=== PATIENT | female | born 1985 | race Two or more races ===

== ENCOUNTER 2016-10-30 02:08 | Outpatient (CLI) | payer BC ==
[2016-10-30 02:35] VITALS: BP 152/87
[2016-10-30 02:57] VITALS: BP 126/80
[2016-10-30 03:29] VITALS: BP 132/75
[2016-10-30] MEDS ORDERED: PRENATAL TABLE1 EAC3 PO (04:08)
[2016-10-30 04:40] VITALS: BP 118/63
[2016-10-30 05:31] VITALS: BP 124/73
[2016-10-30 06:52] VITALS: BP 131/76
== END 2016-10-30 08:38 | disposition home or self-care (01) ==
LOC: LDRP-OP 02:08 → 2WEST 02:09 → LDRP-OP 12-03 10:14
DX: O47.1 False labor at or after 37 completed weeks of gestation (principal); Z3A.39 39 weeks gestation of pregnancy
CPT/HCPCS: 59025; G0378

== ENCOUNTER 2016-11-01 23:31 | Inpatient (IN) | payer BC ==
[~2016-11-01] VITALS: Ht 149.9 cm; Wt 63.6 kg
[~2016-11-01 23:31] MED LIST: PRENATAL TABLE1 EAC3 PO
[2016-11-01 23:51] VITALS: BP 175/109
[2016-11-02] VITALS (36 sets, daily range): BP systolic 102–178; BP diastolic 56–86
[2016-11-02 10:14] LABS: EOSINOPHIL (%) 0.8 % (0-5); EOSINOPHIL COUNT 0.1 K/uL (0-0.3); HEMATOCRIT 37.7 % (36.0-46.0); IMMATURE GRANULOCYTE (%) 0.7 % (0.0-0.7); IMMATURE GRANULOCYTE COUNT 0.1 K/uL; LYMPHOCYTE COUNT 1.2 K/uL (1.0-2.8); MCV 85.5 FL (83-99); MEAN PLAT.VOLUME 9.3 uM^3 (9.5-12.4); MONOCYTE (%) 7.1 % (3-12); MONOCYTE COUNT 0.7 K/uL (0-0.8); NEUTROPHIL (%) 78.9 % (45-76); PLATELET COUNT 239 K/uL (156-360); RBC DIS.WIDTH-CV 13.9 % (11.8-14.6); RBC DIS.WIDTH-SD 43.8 % (39-53); RED BLOOD COUNT 4.41 M/uL (3.80-5.20); WHITE BLOOD COUNT 10.1 K/uL (4.1-10.2)
[2016-11-02] MEDS ORDERED: ENDOCET 5-3251 EACH PO (23:45)
[2016-11-02] MEDS ORDERED: IBUPROFEN800 MG PO (23:45)
[2016-11-03] VITALS (11 sets, daily range): BP systolic 118–149; BP diastolic 65–85
[2016-11-03 05:15] LABS: EOSINOPHIL (%) 0.2 % (0-5); HEMATOCRIT 26.7 % (36.0-46.0); IMMATURE GRANULOCYTE (%) 0.7 % (0.0-0.7); IMMATURE GRANULOCYTE COUNT 0.1 K/uL; INSTRUMENT ABS NEUTROPHIL CT 10.4 K/uL; LYMPHOCYTE COUNT 1.2 K/uL (1.0-2.8); MCHC 33.7 G/DL (30.0-36.0); MCV 86.1 FL (83-99); MONOCYTE COUNT 0.8 K/uL (0-0.8); NEUTROPHIL (%) 83.3 % (45-76); NEUTROPHIL COUNT 10.4 K/uL (1.8-6.4); PLATELET COUNT 198 K/uL (156-360); RBC DIS.WIDTH-CV 13.7 % (11.8-14.6); RBC DIS.WIDTH-SD 43.3 % (39-53); WHITE BLOOD COUNT 12.5 K/uL (4.1-10.2)
[2016-11-04 07:40] VITALS: BP 133/73
[2016-11-04 10:55] VITALS: BP 129/83
[2016-11-04 14:45] VITALS: BP 133/58
[2016-11-04 23:00] VITALS: BP 149/84
[2016-11-05 07:33] VITALS: BP 119/67
[2016-11-05] MEDS ORDERED: COLACE100 MG PO (12:41)
== END 2016-11-05 13:19 | disposition home or self-care (01) | DRG 765 ==
LOC: LDRP-OP 23:31 → 2WEST 23:32 → LDRP-OP 12-03 09:06
PROVIDERS: Nurse Practitioner; Obstetrics & Gynecology
PROC: 10D00Z1 Extraction of Products of Conception, Low, Open Approach (ICD-10-PCS; principal; 2016-11-02)
PROC: 3E0S3CZ (ICD-10-PCS; principal; 2016-11-02)
PROC: 00HU33Z Insertion of Infusion Device into Spinal Canal, Percutaneous Approach (ICD-10-PCS; principal; 2016-11-02)
DX: O33.9 Maternal care for disproportion, unspecified (principal); D62 Acute posthemorrhagic anemia; O62.2 Other uterine inertia; Z3A.40 40 weeks gestation of pregnancy; Z37.0 Single live birth; O99.02 Anemia complicating childbirth
CPT/HCPCS: 85025; C1755; G0378; J0295; J0690; J2175; J2270; J2274; J2405; J2550; J3010; J7050; J7120